=== PATIENT | female | born 1990 | race Caucasian/White ===

== ENCOUNTER 2019-08-30 05:24 | Emergency (ER) | payer SELFPAY ==
[2019-08-30] MEDS ORDERED: Ketorolac Tromethamine 30 MG/ML VIAL ONE (06:12)
[2019-08-30 06:20] LABS: BHCG - Serum Negative (NEGATIVE); Pregs Control Background? CLEAR/WHITE (CLR/WHITE); Pregs Control Bar Appear? YES (CONTROL BAR)
[2019-08-30 06:27] LABS: #Basophils 0.1 thou/uL (0.0-0.2); #Lymphocytes 0.8 thou/uL (1.20-3.40); #Monocytes 0.3 thou/uL (0.11-0.59); #Neutrophils 3.5 thou/uL (1.40-6.50); %Basophils 1.8 % (0.0-1.0); %Eosinophils 0.4 % (0.0-10.0); %Lymphocytes 17.7 % (21.0-51.0); %Monocytes 6.2 % (0.0-10.0); %Neutrophils 73.9 % (42.0-75.0); Hemoglobin 15.4 g/dL (12.0-16.0); Mean Corpuscular HGB CONC 32.4 g/dL (32.0-36.0); Mean Corpuscular Hemoglobin 29.3 pg (27.0-31.0); Mean Corpuscular Volume 90.3 fL (78.0-98.0); Mean Platelet Volume 9.6 fL (7.4-10.4); Platelet Count 208 thou/uL (130-400); RBC Distribution Width 13.3 % (11.5-14.5); Red Blood Cell (RBC) Count 5.26 mill/uL (4.20-5.40); White Blood Cell (WBC) Count 4.8 thou/uL (4.8-10.8)
[2019-08-30 06:29] LABS: ALT (SGPT) 43 U/L (8-55); AST (SGOT) 37 U/L (5-34); Albumin 4.1 g/dL (3.5-5.0); Alkaline Phosphatase 61 U/L (40-110); Anion Gap 14 mmol/L (10-20); BUN (Urea Nitrogen) 9 mg/dL (7.0-18.7); Bilirubin, Total 0.4 mg/dL (0.2-1.2); CK (CPK) 76 U/L (29-168); Calc. Creatinine Clearance 0 mL/min (70-130); Calcium 8.8 mg/dL (7.8-10.44); Carbon Dioxide 23 mmol/L (22-29); Chloride 104 mmol/L (98-107); Estimated GFR-MDRD 76; Globulin 3.1 g/dL (2.4-3.5); Glucose 105 mg/dL (70-105); Lipase 33 U/L (8-78); Potassium 3.6 mmol/L (3.5-5.1); Protein, Total 7.2 g/dL (6.0-8.3); Sodium 137 mmol/L (136-145)
--- NOTE | 2019-08-30 07:48 | RAD ---
CHEST 2 VIEWS: Date: 08/30/2019 The heart is normal in size and the lungs are clear. No lobar infiltrate or effusion seen. Slight pro minence of basilar markings is felt to be actually due to the overlying soft tissues. The mediastinum appears normal. No effusions are seen. IMPRESSION: No acute thoracic findings. POS: HOME
--- NOTE | 2019-08-30 07:58 | CT ---
CT ANGIO CHEST: Date: 08/30/[address] of the chest was done after a bolus of IV contrast. Unfortunately, the scanner started slig htly late after the bolus, so much of the contrast is already in the aorta. This yields a medium to l ow sensitivity study for pulmonary embolism. There were no filling defects in the more central branches of the pulmonary arteries. Small to medium size emboli in the mid to distal branches would be missed. There is no sign of aortic aneurysm or di ssection. Each coronary artery fills. There is no pericardial effusion. No mediastinal mass or hemato ma seen. The lungs show no major infiltrate, though there is perhaps a very tiny patchy area in the r ight upper lobe. Some minor scarring is seen in the left costophrenic sulcus. The top slices through the abdomen show a very vascular enhancing lesion in the dome of the liver. Th e main part measures about 3.7 cm in size and may have an adjacent part to it. Statistically, the fin dings are most likely a hemangioma. Further studies would be needed to investigate and improve this. Given the size and findings, and the possibility of more than one area, a MRI might be preferred to a CT. IMPRESSION: 1. Low to medium sensitivity study showing no evidence of pulmonary embolism. 2. No major infiltrate, though there may be a tiny patchy area in the right upper lobe. 3. Enhancing lesion in the dome of the right lobe of the liver. Most likely, a hemangioma and possib ly more than one. MRI is recommended as a follow-up to best characterize the findings. Preliminary report taken to the ER at 0715 hours on 08/30/2019. CODE CR. POS: [facility]
[2019-08-30] MEDS ORDERED: Iopamidol 370 76% 100 ML VIAL ONE (10:45)
== END 2019-08-30 08:36 | disposition home or self-care (01) ==
LOC: BURERS 05:24
DX: D18.09 Hemangioma of other sites (principal); F17.210 Nicotine dependence, cigarettes, uncomplicated
CPT/HCPCS: 71046; 71275; 80053; 82550; 83690; 84484; 84703; 85025; 85379; 93005; 96361; 96374; J1885; Q9967